=== PATIENT | female | born 1950 | race Caucasian/White ===

== ENCOUNTER → 2023-11-26 15:05 | Outpatient (REF) | payer MEDICARE, OTHER, SELFPAY | LOC: RAD 15:05 | PROVIDERS: ATTENDING PHYSICIAN Physician Assistant Medical | DX: E78.2 Mixed hyperlipidemia (principal); R09.89 Other specified symptoms and signs involving the circulatory and respiratory systems; I10 Essential (primary) hypertension | CPT/HCPCS: 93880 ==

== ENCOUNTER → 2024-01-15 13:44 | Outpatient (REF) | payer MEDICARE, OTHER, SELFPAY | LOC: DHCBS HW 13:44 | PROVIDERS: ATTENDING PHYSICIAN Internal Medicine Cardiovascular Disease; FAMILY PHYSICIAN Physician Assistant Medical | DX: I35.1 Nonrheumatic aortic (valve) insufficiency (principal) | CPT/HCPCS: 93306 ==

== ENCOUNTER → 2024-06-08 10:52 | Outpatient (REF) | payer MEDICARE, OTHER, SELFPAY | LOC: WDC 10:52 | PROVIDERS: ATTENDING PHYSICIAN Physician Assistant Medical | DX: Z12.31 Encounter for screening mammogram for malignant neoplasm of breast (principal) | CPT/HCPCS: 77063; 77067 ==

== ENCOUNTER → 2025-06-09 13:32 | Outpatient (REF) | payer MEDICARE, OTHER, SELFPAY | LOC: WDC 13:32 | PROVIDERS: ATTENDING PHYSICIAN Physician Assistant Medical | DX: Z12.31 Encounter for screening mammogram for malignant neoplasm of breast (principal) | CPT/HCPCS: 77063; 77067 ==